=== PATIENT | male | born 1990 | race Caucasian/White ===

== ENCOUNTER 2020-09-30 17:20 | Emergency (ER) | payer OTHER ==
[~2020-09-30] VITALS: Ht 167.6 cm; Wt 63.5 kg
[2020-09-30 17:21] VITALS: BP 123/82
== END 2020-09-30 18:04 | disposition home or self-care (01) ==
LOC: ER 17:20
DX: Z71.1 Person with feared health complaint in whom no diagnosis is made (principal)